=== PATIENT | male | born 1975 | race Caucasian/White ===

== ENCOUNTER → 2019-11-08 14:21 | Outpatient (BNVA) | payer OTHER, SELFPAY | PROVIDERS: Family Provider Family Medicine; PCP Family Medicine; Visit Provider Nurse Practitioner Family | DX: B97.89 Other viral agents as the cause of diseases classified elsewhere (principal); J98.8 Other specified respiratory disorders; R05 Cough; Z11.59 Encounter for screening for other viral diseases | CPT/HCPCS: 87635 ==